=== PATIENT | male | born 1955 | race African-American/Black ===

== ENCOUNTER 2024-04-25 00:40 | Emergency (ER) | payer MEDICARE, OTHER ==
[~2024-04-25] VITALS: Ht 180.3 cm; Wt 93.0 kg
[2024-04-25 01:26] LABS: CHLORIDE 105 mEq/L (98-107); POTASSIUM 3.9 mEq/L (3.5-5.1); SODIUM 143 mEq/L (136-145)
[2024-04-25 01:27] LABS: CALCIUM 9.3 mg/dL (8.7-10.4); CARBON DIOXIDE 26 mEq/L (21-32)
[2024-04-25 01:29] LABS: BASOPHILS % 0.5 % (0.0-2.0); DIFFERENTIAL COMMENT 0; EOSINOPHILS % 2.7 % (0.0-5.0); HEMOGLOBIN. 12.8 g/dL (14.0-18.0); LYMPHOCYTES % 29.3 % (20.0-50.0); MEAN CORPUSCULAR HEMOGLOBIN 24.2 pg (28.0-32.0); MEAN CORPUSCULAR HGB CONC 30.4 g/dL (31.0-37.0); MEAN CORPUSCULAR VOLUME 79.4 fL (80.0-94.0); MEAN PLATELET VOLUME 9.7 fl (7.4-10.4); MONOCYTES % 7.9 % (2.0-8.0); NEUTROPHILS % 59.6 % (40.0-76.0); PLATELET 218 x1000/uL (130-400); RED BLOOD CELL COUNT 5.29 mill/uL (4.7-6.1); RED CELL DISTRIBUTION WIDTH 19.7 % (11.6-14.6); WHITE BLOOD COUNT 7.4 x1000/uL (4.5-11.0)
[2024-04-25] MEDS ORDERED: MIDAZOLAM 100MG/100ML PMX 100 ML IV PRN (01:30)
[2024-04-25 01:32] LABS: CREATININE 1.7 mg/dL (0.6-1.3); GLUCOSE 128 mg/dL (70-105); UREA NITROGEN BLOOD 23 mg/dL (9-23)
[2024-04-25 01:33] LABS: ETHANOL BLOOD < 10 mg/dL (<10)
[2024-04-25 01:34] LABS: CREATINE KINASE 225 IU/L (46-171)
[2024-04-25 01:50] VITALS: PULSE 80; RESP 18; O2SAT 99
[2024-04-25] MEDS: MIDAZOLAM 100MG/100ML PMX 100 ML IV PRN (01:53)
[2024-04-25 02:05] LABS: TROPONIN I HIGH SENSITIVITY 693 ng/L (3.0-53)
[2024-04-25] MEDS: METOPROLOL TARTRATE 5MG/5ML VIAL IV NR (02:46)
[2024-04-25 02:53] VITALS: O2SAT 96
[2024-04-25 02:56] LABS: PROTHROMBIN TIME 11.6 sec (9.6-11.0)
[2024-04-25 03:07] LABS: CLARITY URINE CLEAR (CLEAR); COLOR URINE YELLOW (YELLOW); GLUCOSE URINE 2+ (NEGATIVE); KETONES URINE NEGATIVE (NEGATIVE); LEUKOCYTE ESTERASE URINE NEGATIVE (NEGATIVE); NITRITE URINE NEGATIVE (NEGATIVE); OCCULT BLOOD URINE TRACE (NEGATIVE); PH URINE 5.5 (4.5-8.0); PROTEIN URINE 3+ (NEGATIVE); UROBILINOGEN URINE 0.2 E.U./dL (0.2-1.0)
[2024-04-25 03:14] LABS: *AMPHETAMINES SCREEN URINE NEGATIVE (NEGATIVE); *BARBITURATES SCREEN URINE NEGATIVE (NEGATIVE); *BENZODIAZEPINES SCREEN URINE NEGATIVE (NEGATIVE); *COCAINE SCREEN URINE NEGATIVE (NEGATIVE); CANNABINOID URINE SCREEN NEGATIVE (NEGATIVE); ECSTASY MDMA SCREEN URINE NEGATIVE (NEGATIVE); METHADONE URINE SCREEN NEGATIVE (NEGATIVE); OPIATES URINE SCREEN NEGATIVE (NEGATIVE); PHENCYCLIDINE URINE SCREEN NEGATIVE (NEGATIVE)
[2024-04-25] MEDS: CEFTRIAXONE 1GM/50ML 50 ML IV NR (03:25)
[2024-04-25 03:30] VITALS: TEMP 36.50292
[2024-04-25] MEDS: AZITHROMYCIN 500MG/250ML 250 ML IV NR (04:20)
[2024-04-25] MEDS: IOHEXOL-350 100 ML BOTTLE ONE (04:20)
[2024-04-25] MEDS ORDERED: FENTANYL 2500MCG/250ML PMX 250 ML IV STA (04:45)
[2024-04-25] MEDS ORDERED: PROPOFOL 10MG/ML 100ML 100 ML IV ONE (04:45)
[2024-04-25] MEDS: SODIUM CHLORIDE 0.9% 1,000 ML IV NR (04:52)
[2024-04-25 04:55] LABS: SQUAMOUS EPITHELIAL CELL URINE FEW /lpf (RARE/1+)
[2024-04-25 04:56] LABS: RBC URINE 0-2 /hpf (0-2)
[2024-04-25 04:57] LABS: BACTERIA URINE 4+
[2024-04-25 05:00] VITALS: PULSE 85; RESP 27; O2SAT 99
[2024-04-25] MEDS ORDERED: FENTANYL CITRATE 1,000 MCG in SODIUM CHLORIDE 0.9% 80 ML IV PRN (05:00)
[2024-04-25 05:25] VITALS: BP 128/90; PULSE 72; RESP 16; O2SAT 96
== END 2024-04-25 05:34 | disposition short-term general hospital (02) ==
LOC: ER 00:40 → CANBEDREQ 07:34
DX: I65.1 Occlusion and stenosis of basilar artery (principal); N18.9 Chronic kidney disease, unspecified; I12.9 Hypertensive chronic kidney disease with stage 1 through stage 4 chronic kidney disease, or unspecified chronic kidney disease; E78.5 Hyperlipidemia, unspecified
CPT/HCPCS: 80305; 80048; 81003; 80320; 82550; 85025; 85610; 84484; 36415; 71045; 70496; 70498; 70450; 31500; 93005; 96367; 96361; 96365; 96375; 99291; Q9967; J0456; J0696; J3490; J2704; 94002; J3010; G0480